=== PATIENT | male | born 1950 | race Caucasian/White ===

== ENCOUNTER → 2024-08-05 11:38 | Outpatient (REF) | payer MEDICARE, OTHER, SELFPAY | LOC: DHSLP 11:38 | PROVIDERS: ATTENDING PHYSICIAN Internal Medicine Cardiovascular Disease; FAMILY PHYSICIAN Family Medicine | DX: G47.33 Obstructive sleep apnea (adult) (pediatric) (principal); R06.83 Snoring | CPT/HCPCS: 95800 ==

== ENCOUNTER → 2025-01-18 09:38 | Outpatient (REF) | payer MEDICARE, OTHER, SELFPAY ==
[2025-01-18 10:49] LABS: Hematocrit 42.9 % (39.0-52.0); Hemoglobin 14.6 g/dL (13.0-18.0); Mean Corp Hgb Conc. 34.0 g/dL (33.0-37.0); Mean Corpuscular Volume 95.5 fL (80.0-94.0); Nucleated Red Blood Cells % 0 % (-); Platelet Count 232 10^3/uL (130-400); Red Cell Dist. Width 12.6 % (11.5-14.5)
[2025-01-18 11:05] LABS: ALT (SGPT) 28 U/L (0-50); AST (SGOT) 29 U/L (17-59); Albumin 4.5 g/dl (3.5-5.0); Alkaline Phosphatase 42 U/L (38-126); Blood Urea Nitrogen 18 mg/dl (9-20); Calcium 9.3 mg/dl (8.4-10.2); Carbon Dioxide 28 mmol/L (22-30); Chloride 106 mmol/L (98-107); Glucose 99 mg/dl (70-99); Magnesium 2.1 mg/dl (1.6-2.3); Potassium 4.5 mmol/L (3.5-5.1); Sodium 136 mmol/L (135-145); Total Protein 7.3 g/dl (6.3-8.2); eGFR > 60.00
== END ==
LOC: SDSPAT 09:38
PROVIDERS: ATTENDING PHYSICIAN Internal Medicine Cardiovascular Disease; FAMILY PHYSICIAN Family Medicine; OTHER PHYSICIAN Internal Medicine Cardiovascular Disease
DX: I49.9 Cardiac arrhythmia, unspecified (principal)
CPT/HCPCS: 36415; 80053; 83735; 85025; 93005

== ENCOUNTER 2025-02-11 11:15 | Day surgery (SDC) | payer MEDICARE, OTHER, SELFPAY ==
[2025-01-18 09:57] VITALS: BMI 32.3
[2025-02-11] VITALS (9 sets, daily range): BP systolic 99–119; BP diastolic 61–86; BMI 30.6
--- NOTE | 2025-02-11 15:19 | ITS.CL.ABL ---
[facility] - Ablation
Ablation
Procedure Report:
ELECTROPHYSIOLOGY ABLATION REPORT
Date of Procedure: February 11, 2025
Referring: Dr. Jame Black
INDICATION: Narrow complex tachycardia which is nonsustained and paroxysmal with breakthrough through beta-gayatri therapy. The patient also has periods of sustained arrhythmia.
HISTORY: As above
PROCEDURE:
Baseline intracardiac measurements were obtained in sinus rhythm.��HRA, HIS, RVA and CS catheters were placed. 3D mapping with the [employer] mapping system was utilized.
Atrial decremental extrastimuli were delivered from the HRA and the CS.��Single and double extrastimuli as well as burst pacing were performed from both sites in both the baseline state.��Atrial and AVN antegrade ERP�s were determined.��Antegrade as
well as retrograde AVN [place] CL�s were determined.
MEASUREMENTS:
BASELINE
A-A:�1200 ms
P-P:�1200 ms
A-H:�88 ms
H-V����50 ms
P-R:�148 ms
QRS:�80 ms
QT:����380 ms
SNRT: Normal at 600 ms
AVN Wenckebach: 320 ms pre and post procedure
AVN Fast Pathway ERP: 600�380 ms
AVN Slow Pathway ERP: 600�310 ms
HIS-Purkinje System: Normal; no distal block
Retrograde Conduction Decremental, Retrograde Block for 10 ms
RVA ERP: 380 ms/600ms��
Retrograde slow pathway jumps were noted at 600�410
9 [place] and 6 [place]aw[place] sheaths to the right femoral vein, 7 [place] and 6 [place] sheaths to the left femoral vein under ultrasound guidance.
Evidence for atypical AV Lupe Reentry as the tachycardia diagnosis included: (1)��An concentric atrial activation sequence during SVT with earliest atrial activation located at the slow pathway position along the decapolar CS catheter after a
retrograde STEPHEN jump with retrograde His activation notable prior to atrial activation, (2) Atrial activation during SVT began after the first 80ms of the QRS complex with a long RP tachycardia cycle length 350, (4) Initiation of SVT was dependent on
a critical AH interval (slow pathway engagement), more likely to be induced from ventricular pacing (5) tachycardia was nonsustained with an AH interval in tachycardia of 108 ms and atrial pacing from the proximal coronary sinus at 350 ms
demonstrated an AH interval of 132 ms during atrial pacing. 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 (6) sinus
beats also noted double response activating both the slow and fast pathway simultaneously. It was easier to induce tachycardia from the ventricle and slow pathway engagement with VA jump was noted from the ventricle. 7) there was no evidence for
eccentric activation during ventricular pacing with noninducibility for atrial tachycardia despite burst pacing from distal and proximal coronary sinus as well as the high right atrium down to atrial refractoriness.
SVT was initiated by ventricular extrastimuli and was nonsustained
SVT could be terminated by nonsustained and self terminating
The SVT cycle length was 350 ms.; SVT was well-tolerated hemodynamically.
Radiofrequency Catheter Ablation:
Following determination of the SVT mechanism, the 9 [place] short sheath in the right femoral vein was upgraded to a 10 [place] steerable long sheath and brought over a wire up to the right atrium. The hiss bundle catheter was moved to the high right
atrial position and at a 1-4 AV ratio with the fractionated atrial electrogram typical and atypical junctional beats were noted with a total of 3.5 minutes of radiofrequency energy. After this we no longer saw slow pathway conduction with decrement
down the fast pathway both from atrial and ventricular extrastimuli and burst pacing from the ventricle. No further nonsustained atrial tachyarrhythmia was noted. A 20-minute waiting period was utilized.
A 4 mm tip RF catheter was used with the maximum power��set to 50 W and the maximum temperature set to 50�degrees C.
After a 20 minute waiting period, stimulation was repeated.��Midline retrograde activation was preserved during RV apical stimulation.
No none sustained SVT was induced, a marked contrast to the pre-ablation situation. There was also no evidence for slow pathway conduction post ablation
COMPLICATIONS: None
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 The patient had no evidence for eccentric VA conduction or presence of antegrade or
retrograde bypass tract and was noninducible for atrial tachycardia with rapid burst pacing at atrial refractoriness from proximal distal coronary sinus and high right atrium.
RECOMMENDATIONS:
1. Resume low-dose metoprolol and follow arrhythmias clinically
2. Outpatient follow-up with Dr. Black
[2025-02-11] MEDS: TYLENOL 1000 MG PO (15:42)
== END 2025-02-11 19:27 | disposition home or self-care (01) ==
LOC: CATH 11:15
PROVIDERS: ATTENDING PHYSICIAN Internal Medicine Cardiovascular Disease; FAMILY PHYSICIAN Family Medicine; OTHER PHYSICIAN Internal Medicine Cardiovascular Disease
DX: I47.10 Supraventricular tachycardia, unspecified (principal); I10 Essential (primary) hypertension; E78.5 Hyperlipidemia, unspecified; E66.9 Obesity, unspecified; Z68.32 Body mass index [BMI] 32.0-32.9, adult; N40.0 Benign prostatic hyperplasia without lower urinary tract symptoms; M19.90 Unspecified osteoarthritis, unspecified site; Z79.1 Long term (current) use of non-steroidal anti-inflammatories (NSAID); Z79.899 Other long term (current) drug therapy
CPT/HCPCS: C1894; C1730; C1766; C1892; C1733; 93005; 93653